=== PATIENT | male | born 1970 | race Caucasian/White ===

== ENCOUNTER → 2016-05-12 | Outpatient (CLI) | payer BC ==
[~2016-05-12] MED LIST: ACTOS PO; ALEVE; AMARYL PO; CETIRIZINE HCL10 MG PO; COQ10-VIT E 101 EACH; WAL-PROFEN200 M1 PO
--- NOTE | ~2016-05-12 | US140 ---
[facility] A Service of [facility] RADIOLOGY TEXT RESULTS PATIENT: JESUS ABREU LOCATION: CNIV : 68 UNIT #: [id number] AGE: [address]: Timbo Gonsalez MD SEX: M ORDER DR: [id number] [facility] [address] [place], [place] [address] [id number] O MR#: [id number] Acc #: [id number] NAME: JESUS ABREU. : 1970 SEX: M STUDY DATE/TIME: 05/12/2016 13:14 UNIT: [facility]IV ROOM: STUDY DESCRIPTION: [facility] Veins Unilat or Ltd Stdy Attending Physician: Timbo Gonsalez M.D. Referring Physician: Timbo Gonsalez M.D. Ordering Physician: Timbo Gonsalez M.D. Primary Care Physician: Timbo Gonsalez M.D. MEDICAL IMAGING REPORT This report is preliminary unless electronic signature is present EXAM Left upper extremity venous duplex 05/12/2016 HISTORY Left upper extremity pain and swelling for 2 weeks. Evaluate for deep vein thrombosis. FINDINGS Byrne-scale images of the left upper extremity were obtained as well as Doppler waveform spectral analysis and color flow Doppler imaging. There is normal blood flow and compressibility in the left internal jugular vein as well as left subclavian, axillary, brachial and cephalic veins. There is occlusive thrombus in the proximal and distal left basilic vein characteristic of superficial thrombophlebitis. IMPRESSION 1. No evidence of deep vein thrombosis in the left upper extremity. 2. Occlusive thrombus in the left basilic vein characteristic of superficial thrombophlebitis. Dictated by... Aung Hinojosa M.D. THIS IS AN ELECTRONICALLY VERIFIED REPORT Aung Hinojosa M.D. at 05/13/2016 8:06 AM NURYS/jessica TD: 05/12/2016 14:18 JOB #: [id number] MEDICAL IMAGING REPORT COPY
== END | disposition home or self-care (01) ==
LOC: CNIV 12:54
DX: I80.8 Phlebitis and thrombophlebitis of other sites (principal); M79.602 Pain in left arm; I82.612 Acute embolism and thrombosis of superficial veins of left upper extremity
CPT/HCPCS: 93971

== ENCOUNTER → 2016-08-16 | Outpatient (CLI) | payer BC ==
--- NOTE | ~2016-08-16 | CT2 ---
[facility] A Service of [facility] RADIOLOGY TEXT RESULTS PATIENT: JESUS ABREU LOCATION: [facility] : [birth year] UNIT #: [id number] AGE: [address]: Timbo Gonsalez MD SEX: M ORDER DR: [id number] [facility] [address] [facility] [place], [place] [address] [id number] O MR#: [id number] Acc #: [id number] NAME: JESUS ABREU. : 1970 SEX: M STUDY DATE/TIME: 08/16/2016 12:54 UNIT: [facility]AT ROOM: STUDY DESCRIPTION: CT Abd and Pelv W Cont Attending Physician: Timbo Gonsalez M.D. Referring Physician: Timbo Gonsalez M.D. Ordering Physician: Timbo Gonsalez M.D. Primary Care Physician: Timbo Gonsalez M.D. MEDICAL IMAGING REPORT This report is preliminary unless electronic signature is present EXAM CT abdomen and pelvis with contrast INDICATION Left lower quadrant abdominal pain for past 2-3 days. PROCEDURE Contrast-enhanced CT abdomen and pelvis. This CT exam was performed with one or more of the following radiation dose reduction techniques: Automatic exposure control, adjustment of mA and/or kV according to patient size, and iterative reconstruction. COMPARISON 03/20/2016 FINDINGS ABDOMEN WITH CONTRAST: Included lung bases are predominately clear. 6 mm hypodensity at the inferior tip of the liver is stable and though indeterminate probably represents a small cyst or hemangioma. The spleen, left kidney, adrenal glands, pancreas, gallbladder are unremarkable. The bowel loops are nondilated. Appendix is normal. Previous right nephrectomy. No abnormal tissue in the nephrectomy bed. PELVIS WITH CONTRAST: No pelvic mass or fluid. No aggressive-appearing bone lesion. IMPRESSION 1. No acute findings in the abdomen or pelvis. 2. Previous right nephrectomy. Dictated by... [facility] A Service of [facility] RADIOLOGY TEXT RESULTS PATIENT: JESUS ABREU LOCATION: [facility] : [birth year] UNIT #: [id number] AGE: [address]: Timbo Gonsalez MD SEX: M ORDER DR: Bryce Boone M.D. THIS IS AN ELECTRONICALLY VERIFIED REPORT Bryce Boone M.D. at 08/18/2016 2:27 PM EED/kris TD: 08/16/2016 15:58 JOB #: [id number] MEDICAL IMAGING REPORT Page 1 of 1 COPY
[2016-08-16 14:35] LABS: POC - CREATININE 1.28 mg/dL (0.64-1.27); POC - GFR >60.0 mL/min (>60)
== END | disposition home or self-care (01) ==
LOC: CCAT 11:24
PROVIDERS: Internal Medicine
DX: R10.32 Left lower quadrant pain (principal); Z90.5 Acquired absence of kidney
CPT/HCPCS: 74177; 82565; Q9967